=== PATIENT | female | born 1985 | race African-American/Black ===

== ENCOUNTER 2023-02-03 19:08 | Emergency (ER) | payer OTHER, SELFPAY ==
[2023-02-03 19:12] VITALS: BP 113/62; PULSE 61; RESP 20; TEMP 36.6; O2SAT 97; BMI 31.6
[2023-02-03 19:40] LABS: Add Manual Diff / Slide Review NO; Basophils Absolute Auto 0 /uL (0-100); Basophils Percent Auto 0.4 % (0-2); Eosinophils Absolute Auto 200 /uL (0-450); Hemoglobin 12.3 g/dL (12.0-16.0); Lymphocytes Absolute Auto 1500 /uL (1100-4500); Lymphocytes Percent Auto 12.5 % (25-40); Mean Corpuscular HGB Conc 33.1 % (30-36); Mean Corpuscular Hemoglobin 27.1 PG (26-34); Mean Corpuscular Volume 81.9 fL (80-100); Monocytes Absolute Auto 600 /uL (0-900); Monocytes Percent Auto 4.8 % (3-14); Neutrophils Absolute Auto 9700 /uL (1500-7000); Neutrophils Percent Auto 80.3 % (50-75); Platelet Count 337 X10^3/uL (150-400); Red Blood Cell Count 4.52 X10^6/uL (4.0-5.2); Red Cell Distribution Width 13.4 % (11.6-14.8); White Blood Cell Count 12.1 X10^3/uL (4.5-11.0)
[2023-02-03 19:51] LABS: Alanine Aminotransferase 15 IU/L (<35); Albumin 4.6 g/dL (3.5-5.0); Albumin Globulin Ratio 1.4 (1.0-2.8); Alkaline Phosphatase 86 U/L (38-126); Aspartate Aminotransferase 28 IU/L (14-36); BUN Creatinine Ratio 8.5 (6-22); Bilirubin Total 0.3 mg/dL (0.2-1.3); Blood Urea Nitrogen 10 mg/dL (7-17); Calcium 8.7 mg/dL (8.4-10.2); Carbon Dioxide 23 mmol/L (22-32); Chloride 105 mmol/L (98-107); Estimated Glomerular Filt Rate > 60 mL/min (>60); Globulin 3.2 g/dL (1.7-4.1); Glucose 110 mg/dL (70-100); HEMOLYSIS < 15 (0-50); Lipase 69 U/L (23-300); Potassium 4.1 mmol/L (3.4-5.1); Sodium 138 mmol/L (137-145); Total Protein 7.8 g/dL (6.3-8.2)
[2023-02-03 21:31] LABS: Pregnancy Test Serum,Qual Negative (Negative)
--- NOTE | 2023-02-03 22:02 | ED.ABDPAIN ---
HPI - Abdominal Pain General Chief Complaint: Abdominal Pain Stated Complaint: rt side torso pain/nausea/vomiting Time Seen by Provider: 02/03/23 21:58 Source: patient Mode of arrival: Family Vehicle History of Present Illness HPI narrative: Patient is a healthy 37-year-old female history of depression anxiety bipolar presenting today with right flank pain. She is a history of appendectomy. She reports pain has been ongoing for the last 4 days. No fevers or chills. Pretty nauseous decrease in appetite. She is been here for couple hours not yet able to urinate. She has vomited handful of times as well. She denies any epigastric and upper abdominal pain. Seems to be right on her lateral side. No prior history of kidney stones. Related Data Previous Rx's Medication Instructions Recorded ondansetron 4 mg disintegrating 4 mg PO Q8H PRN nausea and 02/04/23 tablet vomiting #10 tabs Allergies Allergy/AdvReac Type Severity Reaction Status Date / Time aspirin Allergy Swelling Verified 02/03/23 19:20 of Lip/Tongue/Throat ciprofloxacin [From Cipro] Allergy Rash Verified 02/03/23 19:20 Sulfa (Sulfonamide Allergy Rash Verified 02/03/23 19:20 Antibiotics) vancomycin Allergy Rash Verified 02/03/23 19:20 Review of Systems Review of Systems ROS Unobtainable: All systems reviewed & are unremarkable except as noted in HPI and below Patient History Social History Smoking Status: Never smoker Smoking Status: Never smoker alcohol intake frequency: 0-2 drinks per day Substance Use Type: marijuana Exam Initial Vital Signs Initial Vital Signs: Vital Signs Temperature 97.9 F 02/03/23 19:12 Pulse Rate 61 02/03/23 19:12 Respiratory Rate 20 02/03/23 19:12 Blood Pressure 113/62 02/03/23 19:12 Pulse Oximetry 97 02/03/23 19:12 Oxygen Delivery Method Room Air 02/03/23 19:12 GENERAL: Alert pleasant well-appearing 37-year-old female and in no acute distress. HEENT: Head atraumatic,EOMI, pupils reactive, face symmetric, moist mucous membranes CARDIOVASCULAR: Regular rate and rhythm without murmurs, rubs or gallops. RESPIRATORY: Breath sounds equal bilaterally, no wheezes rales or rhonchi. ABDOMEN: Soft, mild right lower quadrant tenderness no guarding no rebound : Mild right CVA tenderness EXTREMITIES: Normal range of motion, no clubbing or edema. Neurovascularly intact NEUROLOGICAL: Alert and oriented x4. SKIN: Warm, dry, no laceration, no petechiae, no rashes or lesions. Course Orders Ordered: ED Orders 02/03/23 19:25 Complete Blood Count AUTO DIFF Stat Comprehensive Metabolic Panel Stat Lipase Stat Test Serum,Qual Stat 02/03/23 22:17 CT kidney ureter bladder (KUB) Stat Discontinued Medications Sodium Chloride (Normal Saline 0.9%) 1,000 mls @ 1,000 mls/hr IV BOLUS ONE Stop: 02/03/23 23:16 Last Infusion: 02/03/23 23:30 Dose: 0 mls/hr Documented By: Admin: 02/03/23 22:30 Dose: 1,000 mls/hr Documented By: EULALIA Ondansetron HCl (Ondansetron 4 Mg Odt) 4 mg PO NOW PRN PRN Reason: Nausea And Vomiting Ondansetron HCl (Ondansetron 4 Mg/2 Ml Inj) 4 mg IV NOW PRN PRN Reason: Nausea And Vomiting Ondansetron HCl (Ondansetron 4 Mg/2 Ml Inj) 4 mg IV NOW ONE Stop: 02/03/23 22:18 Last Admin: 02/03/23 22:30 Dose: 4 mg Documented By: EULALIA Ondansetron HCl (Ondansetron 4 Mg Odt Prepack) 1 bottle MISC SEEINSTR ONE Stop: 02/04/23 00:35 Last Admin: 02/04/23 00:53 Dose: 1 bottle Documented By: EULALIA Vital Signs Vital signs: Vital Signs - 8 hr 02/04/23 00:53 Temperature 97.7 F Pulse Rate 74 Respiratory Rate 16 Blood Pressure 124/70 Pulse Oximetry 98 Oxygen Delivery Method Room Air MDM - Abdominal Pain Lab Data 02/03/23 19:25 02/03/23 19:25 Labs: Lab Results 02/03/23 02/03/23 02/03/23 Range/Units 19:25 19:25 19:25 WBC 12.1 H (4.5-11.0) X10^3/uL RBC 4.52 (4.0-5.2) X10^6/uL Hgb 12.3 (12.0-16.0) g/dL Hct 37.0 (36-46) % MCV 81.9 (80-100) fL MCH 27.1 (26-34) PG MCHC 33.1 (30-36) % RDW 13.4 (11.6-14.8) % Plt Count 337 (150-400) X10^3/uL Neut % (Auto) 80.3 H (50-75) % Lymph % (Auto) 12.5 L (25-40) % [place] % (Auto) 4.8 (3-14) % Eos % (Auto) 2.0 (2-4) % Baso % (Auto) 0.4 (0-2) % Neut # (Auto) 9700 H (3420-8739) /uL Lymph # (Auto) 1500 (3916-9338) /uL [place] # (Auto) 600 (0-900) /uL Eos # (Auto) 200 (0-450) /uL Baso # (Auto) 0 (0-100) /uL Sodium 138 (137-145) mmol/L Potassium 4.1 (3.4-5.1) mmol/L Chloride 105 (98-107) mmol/L Carbon Dioxide 23 (22-32) mmol/L BUN 10 (7-17) mg/dL Creatinine 1.17 H (0.52-1.04) mg/dL Estimated GFR > 60 (>60) mL/min BUN/Creatinine Ratio 8.5 (6-22) Glucose 110 H (70-100) mg/dL Calcium 8.7 (8.4-10.2) mg/dL Total Bilirubin 0.3 (0.2-1.3) mg/dL AST 28 (14-36) IU/L ALT 15 (<35) IU/L Alkaline Phosphatase 86 (38-126) U/L Total Protein 7.8 (6.3-8.2) g/dL Albumin 4.6 (3.5-5.0) g/dL Globulin 3.2 (1.7-4.1) g/dL Albumin/Globulin Ratio 1.4 (1.0-2.8) Lipase 69 (23-300) U/L Serum , Qual Negative (Negative) Point of care testing: Urine Dip Bedside Urine Glucose Negative Bedside Urine Bilirubin - Negative Bedside Urine Ketone - Negative Urine Specific [place] 1.020 Bedside Urine Occult Blood - Negative Bedside Urine pH 6 Bedside Urine Protein - Negative Bedside Urine Urobilinogen - Negative Bedside Urine Nitrite - Negative Bedside Urine Leukocytes - Negative Esterase Imaging Data CT scan - abdomen/pelvis: Radiologist's Impression: PROCEDURE:? CT KIDNEY URETER BLADDER (KUB) ? INDICATIONS:? right flank pain ? TECHNIQUE:? Axial sections were acquired from the lung bases to the pubic symphysis.? Coronal and sagittal reformats were performed.? For radiation dose reduction, the following was used: ?automated exposure control, adjustment of mA and/or kV according to patient size.? ? COMPARISON:? None. ? FINDINGS:? Image quality:? Excellent.? ? Lung bases:? Unremarkable.? ? Heart:? No significant findings. ? URINARY: Right Kidney: ? No stones or hydronephrosis.? Right Ureter:? No hydroureter.? ? Left Kidney: ? No stones or hydronephrosis. Left Ureter:? No hydroureter.? ? Bladder:? Normal wall thickness. No stones. ? ? ? ABDOMEN: Liver:? Unremarkable.? ? Gallbladder:? Unremarkable.? ? Biliary ducts:? Unremarkable.? ? Pancreas:? Unremarkable.? ? Spleen:? Unremarkable.? ? Adrenal Glands:? Unremarkable.? ? ? Stomach and Bowel:? Stomach, small bowel loops, and colon are unremarkable.? Peritoneum:? No abnormal intraperitoneal fluid.? No free air.? ? Ventral Wall: ? No hernia.? Abdominal Nodes:? No enlarged retroperitoneal or mesenteric lymph nodes.? Vessels:? Aorta and inferior vena cava are normal in size.? ? PELVIS: Pelvic Organs:? Unremarkable.? ? Pelvic Nodes: Unremarkable. Miscellaneous: No inguinal hernias are seen. ? ? At the right lower quadrant several scattered surgical clips suggest prior appendectomy. ? Bones:? Unremarkable. ? IMPRESSION:? ? No hydronephrosis or nephrolithiasis found.? Several surgical clips right lower quadrant suggest prior appendectomy. ? ? Dictated by: Adama Ornelas M.D. on 02/03/2023 at 23:11 ? [facility] Narrative Medical decision making narrative: Patient is a 37-year-old female presenting today with right-sided pain and nausea some vomiting. She is found has some mild leukocytosis creatinine is elevated slightly at 1.1. She has had decreased intake. CT is negative for any kidney stone. She is no elevation in liver enzymes or bilirubin really no right upper quadrant pain. I suspect more of a gastroenteritis. He is given IV fluids and Toradol along with Zofran overall feeling a bit better. Negative urinalysis. At this time no other workup or imaging is indicated. Given Zofran to go home with. Discharge Plan Departure Patient Disposition: Home Clinical Impression: Gastroenteritis Instructions: DI for Viral Gastroenteritis -- Adult Activity Restrictions/Additional Instructions: *You have been diagnosed with gastroenteritis *What to do: Increase fluid as tolerated. Hopefully a nausea medication helps. If you are not eating recommend Gatorade or Gatorade like product. *Continue to take medications as directed Zofran 4 mg every 8 hours if needed for nausea or vomiting *Follow up with your primary care provider in 2-3 days or call [phone] *Return to ER if you should have in preceding pain persistent vomiting or any new, worsening or concerning symptoms Prescriptions: New ondansetron 4 mg tablet,disintegrating 4 mg PO Q8H PRN (Reason: nausea and vomiting) Qty: 10 0RF Stand Alone Forms: Patient Portal/API
--- NOTE | 2023-02-03 22:17 | DI.CT.S_ITS ---
PROCEDURE: CT KIDNEY URETER BLADDER (KUB) INDICATIONS: right flank pain TECHNIQUE: Axial sections were acquired from the lung bases to the pubic symphysis. Coronal and sagittal reformats were performed. For radiation dose reduction, the following was used: automated exposure control, adjustment of mA and/or kV according to patient size. COMPARISON: None. FINDINGS: Image quality: Excellent. Lung bases: Unremarkable. Heart: No significant findings. URINARY: Right Kidney: No stones or hydronephrosis. Right Ureter: No hydroureter. Left Kidney: No stones or hydronephrosis. Left Ureter: No hydroureter. Bladder: Normal wall thickness. No stones. ABDOMEN: Liver: Unremarkable. Gallbladder: Unremarkable. Biliary ducts: Unremarkable. Pancreas: Unremarkable. Spleen: Unremarkable. Adrenal Glands: Unremarkable. Stomach and Bowel: Stomach, small bowel loops, and colon are unremarkable. Peritoneum: No abnormal intraperitoneal fluid. No free air. Ventral Wall: No hernia. Abdominal Nodes: No enlarged retroperitoneal or mesenteric lymph nodes. Vessels: Aorta and inferior vena cava are normal in size. PELVIS: Pelvic Organs: Unremarkable. Pelvic Nodes: Unremarkable. Miscellaneous: No inguinal hernias are seen. At the right lower quadrant several scattered surgical clips suggest prior appendectomy. Bones: Unremarkable. IMPRESSION: No hydronephrosis or nephrolithiasis found. Several surgical clips right lower quadrant suggest prior appendectomy. Dictated by: Adama Ornelas M.D. on 02/03/2023 at 23:11 Approved by: Adama Ornelas M.D. on 02/03/2023 at 23:13
[2023-02-03] MEDS: SODIUM CHLORIDE 0.9% 1,000 ML 1000 ML IV (22:30)
[2023-02-03] MEDS: ONDANSETRON 4 MG/2 ML INJ IV (22:30)
[2023-02-04 00:53] VITALS: BP 124/70; PULSE 74; RESP 16; TEMP 36.5; O2SAT 98
[2023-02-04] MEDS: ONDANSETRON 4 MG ODT PREPACK 1 BOTTLE MISC (00:53)
== END 2023-02-04 00:50 | disposition home or self-care (01) ==
PROVIDERS: Emergency Provider Emergency Medicine
DX: K52.9 Noninfective gastroenteritis and colitis, unspecified (principal); R11.2 Nausea with vomiting, unspecified
CPT/HCPCS: 36415; 74176; 80053; 81003; 83690; 84703; 85025; 96361; 96374; 99284; J2405

== ENCOUNTER 2023-11-07 09:28 | Emergency (ER) | payer OTHER, SELFPAY ==
[2023-11-07] VITALS (9 sets, daily range): BP systolic 124–137; BP diastolic 59–77; PULSE 60–72; RESP 16; TEMP 36.6; O2SAT 97–100; BMI 27.4
--- NOTE | 2023-11-07 10:32 | DI.CT.S_ITS ---
PROCEDURE: CT HEAD/BRAIN WO CON INDICATIONS: vision changes both sides TECHNIQUE: Noncontrast 4.5 mm thick angled axial sections acquired from the foramen magnum to the vertex, with coronal and sagittal reformats. For radiation dose reduction, the following was used: automated exposure control, adjustment of mA and/or kV according to patient size. COMPARISON: None. FINDINGS: Image quality: Diagnostic. CSF spaces: Basal cisterns are patent. No extra-axial fluid collections. Ventricles are normal in size and shape. Brain: No midline shift. No intracranial masses or hemorrhage. Hirsch-white matter interface is normal. Skull and face: Calvarium and visualized facial bones are intact, without suspicious lesions. Sinuses: Visualized sinuses and mastoids are clear. IMPRESSION: No acute intracranial pathology. Dictated by: Brooke Anaya M.D. on 11/07/2023 at 11:17 Approved by: Brooke Anaya M.D. on 11/07/2023 at 11:19
--- NOTE | 2023-11-07 10:35 | ED.HA ---
HPI - Headache General Chief Complaint: Headache Stated Complaint: Triple Vision Time Seen by Provider: 11/07/23 09:46 History of Present Illness HPI Narrative: Patient 38-year-old female history of bipolar presents today with visual changes. She reports almost every morning for the last 3 weeks she has some blurry double vision. She says she is still able to drive her daughter to school and get to work in the slowly gets better. This morning she says that her vision was so bad and blurry that she could not see. She has a little bit of pressure behind her right eye. No real headache nausea or vomiting. She has not really complaining of dizziness. She reports that this is slowly getting better. She denies wearing contacts or glasses. By the end of the day she is able to see and does not have any problem. Related Data Previous Rx's Medication Instructions Recorded ondansetron 4 mg disintegrating 4 mg PO Q8H PRN nausea and 02/04/23 tablet vomiting #10 tabs Allergies Allergy/AdvReac Type Severity Reaction Status Date / Time aspirin Allergy Swelling Verified 02/03/23 19:20 of Lip/Tongue/Throat ciprofloxacin [From Cipro] Allergy Rash Verified 02/03/23 19:20 Sulfa (Sulfonamide Allergy Rash Verified 02/03/23 19:20 Antibiotics) vancomycin Allergy Rash Verified 02/03/23 19:20 Patient History Social History Smoking Status: Never smoker Smoking Status: Never smoker alcohol intake frequency: 0-2 drinks per day Substance Use Type: marijuana Exam Initial Vital Signs Initial Vital Signs: Vital Signs Pulse Rate 62 11/07/23 09:32 Blood Pressure 127/66 11/07/23 09:32 Pulse Oximetry 99 11/07/23 09:32 GENERAL: Alert well-appearing 38-year-old female and in no acute distress. HEENT: Head atraumatic,EOMI, pupils reactive, face symmetric, moist mucous membranes Pupils equal round and reactive Pressure right eye range from 30-42mmHg Pressure left eye ranged from 24 36mmHg CARDIOVASCULAR: Regular rate and rhythm without murmurs, rubs or gallops. RESPIRATORY: Breath sounds equal bilaterally, no wheezes rales or rhonchi. ABDOMEN: Soft, nontender. Normoactive bowel sounds all 4 quadrants. No guarding or rebound. EXTREMITIES: Normal range of motion, no clubbing or edema. Neurovascularly intact NEUROLOGICAL: Alert and oriented x4.Normal gait and speech. Cranial nerves II through XII grossly intact. Good [id number], good [id number], strength equal bilaterally, no dysarthria or aphasia, sensation in tact to soft touch bilaterally, no visual changes, no facial droop SKIN: Warm, dry, no laceration, no petechiae, no rashes or lesions. Scores NIH Stroke Scale Level of Conciousness: Alert, keenly responsive Ask month/age: Answers both questions correctly. Open/close eyes, close hand: Performs both tasks correctly Best gaze horizontal: Normal Visual solomon: No visual loss Facial palsy: Normal symetrical movement Left arm drift: No drift for full 10 sec Right arm drift: No drift for full 10 sec Left leg drift: No drift for full 5 sec Right leg drift: No drift for full 5 sec Limb ataxia: Absent Sensory on face/arms/legs: Normal, no sensory loss Best language: No aphasia, normal Dysarthria: Normal Extinction or inattention: No abnormality Total NIH Stroke scale score: 0 Course Orders Ordered: ED Orders 11/07/23 10:04 CBC Auto Diff [Complete Blood Count AUTO DIFF] Stat CMP [Comprehensive Metabolic Panel] Stat 11/07/23 10:32 CT head/brain wo con Stat Discontinued Medications Fluorescein Sodium (Fluorescein 1 Mg Strip) 1 mg EYE-BOTH NOW ONE Stop: 11/07/23 12:10 Last Admin: 11/07/23 12:15 Dose: 1 mg Documented By: RB Ketorolac Tromethamine (Ketorolac 30 Mg/Ml Vial) 15 mg IV NOW ONE Stop: 11/07/23 10:46 Last Admin: 11/07/23 10:51 Dose: 15 mg Documented By: CTS Proparacaine HCl (Proparacaine 0.5% Ophth Nicole) 1 drops EYE-BOTH NOW ONE Stop: 11/07/23 12:10 Last Admin: 11/07/23 12:15 Dose: 1 drop Documented By: RB Vital Signs Vital signs: Vital Signs - 8 hr 11/07/23 09:32 11/07/23 09:32 11/07/23 09:45 Temperature 97.8 F Pulse Rate 62 72 Respiratory Rate 16 Blood Pressure 127/66 126/66 Pulse Oximetry 99 97 Oxygen Delivery Method Room Air 11/07/23 10:00 11/07/23 10:03 11/07/23 10:03 Temperature Pulse Rate 64 66 Respiratory Rate Blood Pressure 124/68 Pulse Oximetry 100 100 Oxygen Delivery Method 11/07/23 10:30 11/07/23 10:30 11/07/23 11:01 Temperature Pulse Rate 65 68 Respiratory Rate Blood Pressure 125/68 Pulse Oximetry 100 Oxygen Delivery Method 11/07/23 11:01 11/07/23 11:30 11/07/23 11:30 Temperature Pulse Rate 60 Respiratory Rate Blood Pressure 126/59 L 131/77 Pulse Oximetry 100 Oxygen Delivery Method 11/07/23 12:00 11/07/23 12:00 11/07/23 13:41 Temperature Pulse Rate 66 61 Respiratory Rate Blood Pressure 137/74 127/69 Pulse Oximetry 100 100 Oxygen Delivery Method Room Air MDM - Headache Lab Data 11/07/23 10:04 11/07/23 10:04 Labs: Lab Results 11/07/23 Range/Units 10:04 WBC 9.1 (4.5-11.0) X10^3/uL RBC 4.48 (4.0-5.2) X10^6/uL Hgb 12.3 (12.0-16.0) g/dL Hct 37.3 (36-46) % MCV 83.1 (80-100) fL MCH 27.4 (26-34) PG MCHC 32.9 (30-36) % RDW 13.1 (11.6-14.8) % Plt Count 352 (150-400) X10^3/uL Neut % (Auto) 79.1 H (50-75) % Lymph % (Auto) 13.9 L (25-40) % [place] % (Auto) 5.5 (3-14) % Eos % (Auto) 1.3 L (2-4) % Baso % (Auto) 0.2 (0-2) % Neut # (Auto) 7200 H (7741-6553) /uL Lymph # (Auto) 1300 (7195-6957) /uL [place] # (Auto) 500 (0-900) /uL Eos # (Auto) 100 (0-450) /uL Baso # (Auto) 0 (0-100) /uL Sodium 138 (137-145) mmol/L Potassium 4.4 (3.4-5.1) mmol/L Chloride 105 (98-107) mmol/L Carbon Dioxide 24 (22-32) mmol/L BUN 9 (7-17) mg/dL Creatinine 1.11 H (0.52-1.04) mg/dL Estimated GFR > 60 (>60) mL/min BUN/Creatinine Ratio 8.1 (6-22) Glucose 112 H (70-100) mg/dL Calcium 9.1 (8.4-10.2) mg/dL Total Bilirubin 0.5 (0.2-1.3) mg/dL AST 22 (14-36) IU/L ALT 12 (<35) IU/L Alkaline Phosphatase 75 (38-126) U/L Total Protein 7.3 (6.3-8.2) g/dL Albumin 4.3 (3.5-5.0) g/dL Globulin 3.0 (1.7-4.1) g/dL Albumin/Globulin Ratio 1.4 (1.0-2.8) Point of Care Testing Test Results Negative Urine Dip Bedside Urine Glucose Negative Bedside Urine Bilirubin - Negative Bedside Urine Ketone - Negative Urine Specific [place] 1.010 Bedside Urine Occult Blood - Negative Bedside Urine pH 8.0 Bedside Urine Protein - Negative Bedside Urine Urobilinogen - Negative Bedside Urine Nitrite - Negative Bedside Urine Leukocytes - Negative Esterase Imaging Data CT scan - head: Radiologist's Impression: PROCEDURE: CT HEAD/BRAIN WO CON INDICATIONS: vision changes both sides TECHNIQUE: Noncontrast 4.5 mm thick angled axial sections acquired from the foramen magnum to the vertex, with coronal and sagittal reformats. For radiation dose reduction, the following was used: automated exposure control, adjustment of mA and/or kV according to patient size. COMPARISON: None. FINDINGS: Image quality: Diagnostic. CSF spaces: Basal cisterns are patent. No extra-axial fluid collections. Ventricles are normal in size and shape. Brain: No midline shift. No intracranial masses or hemorrhage. Hirsch-white matter interface is normal. Skull and face: Calvarium and visualized facial bones are intact, without suspicious lesions. Sinuses: Visualized sinuses and mastoids are clear. IMPRESSION: No acute intracranial pathology. Dictated by: Brooke Anaya M.D. on 11/07/2023 at 11:17 MDM Narrative Medical decision making narrative: Patient 38-year-old female presenting today ongoing blurry vision odd presentation of definitely worse in the morning slowly gets better throughout the day. The last 2 days it has been worse. Now she has some pressure and pain in her right eye. On exam her pressures are measured multiple times being sure the eyelid is held open appropriately with the Ramiro-Pen measured are all elevated. Head CT has been reviewed she has no obvious mass Blood work reviewed no significant clinical abnormality Visual acuity noted in nursing notes Patient is very young to have glaucoma although it is considered. Head CT was negative for any sort of mass. Also possible psychogenic, she is able to drive her daughter to school and get herself to work every day. 1330 Dr. Amador ophthalmology updated patient's symptoms results suspect a Ramiro-Pen is not accurate probably dry eye but is happy to see patient in clinic. Patient agrees that she will be evaluated by Ophthalmology today. Nursing staff to walker over to Ophthalmology. Discharge Plan Departure Patient Disposition: Home Clinical Impression: Visual changes Instructions: DI for Double Vision Activity Restrictions/Additional Instructions: Go directly over to [facility] they will fit you in see you. Take medications as directed Return to the ER if you should have new or worsening symptoms including numbness tingling weakness loss of vision blackening of vision worsening I Prescriptions: No Action ondansetron 4 mg tablet,disintegrating 4 mg PO Q8H PRN (Reason: nausea and vomiting) Qty: 10 0RF Referrals: Sarkis Amador MD [Physician] - Stand Alone Forms: Patient Portal/API
[2023-11-07] MEDS: KETOROLAC 30 MG/ML VIAL 15 MG IV (10:51)
[2023-11-07 10:56] LABS: Add Manual Diff / Slide Review NO; Basophils Absolute Auto 0 /uL (0-100); Basophils Percent Auto 0.2 % (0-2); Eosinophils Absolute Auto 100 /uL (0-450); Eosinophils Percent Auto 1.3 % (2-4); Hematocrit 37.3 % (36-46); Hemoglobin 12.3 g/dL (12.0-16.0); Lymphocytes Absolute Auto 1300 /uL (1100-4500); Lymphocytes Percent Auto 13.9 % (25-40); Mean Corpuscular HGB Conc 32.9 % (30-36); Mean Corpuscular Hemoglobin 27.4 PG (26-34); Mean Corpuscular Volume 83.1 fL (80-100); Monocytes Absolute Auto 500 /uL (0-900); Monocytes Percent Auto 5.5 % (3-14); Neutrophils Absolute Auto 7200 /uL (1500-7000); Neutrophils Percent Auto 79.1 % (50-75); Platelet Count 352 X10^3/uL (150-400); Red Blood Cell Count 4.48 X10^6/uL (4.0-5.2); Red Cell Distribution Width 13.1 % (11.6-14.8); White Blood Cell Count 9.1 X10^3/uL (4.5-11.0)
[2023-11-07 11:04] LABS: Alanine Aminotransferase 12 IU/L (<35); Albumin 4.3 g/dL (3.5-5.0); Albumin Globulin Ratio 1.4 (1.0-2.8); Alkaline Phosphatase 75 U/L (38-126); Aspartate Aminotransferase 22 IU/L (14-36); BUN Creatinine Ratio 8.1 (6-22); Bilirubin Total 0.5 mg/dL (0.2-1.3); Blood Urea Nitrogen 9 mg/dL (7-17); Calcium 9.1 mg/dL (8.4-10.2); Carbon Dioxide 24 mmol/L (22-32); Chloride 105 mmol/L (98-107); Estimated Glomerular Filt Rate > 60 mL/min (>60); Glucose 112 mg/dL (70-100); HEMOLYSIS < 15 (0-50); Potassium 4.4 mmol/L (3.4-5.1); Sodium 138 mmol/L (137-145); Total Protein 7.3 g/dL (6.3-8.2)
[2023-11-07] MEDS: FLUORESCEIN 1 MG STRIP EYE-BOTH (12:15)
[2023-11-07] MEDS: PROPARACAINE 0.5% OPHTH SOL 1 DROPS EYE-BOTH (12:15)
== END 2023-11-07 13:41 | disposition home or self-care (01) ==
PROVIDERS: Emergency Provider Emergency Medicine
DX: H53.8 Other visual disturbances (principal); H57.11 Ocular pain, right eye
CPT/HCPCS: 36415; 70450; 80053; 81003; 81025; 85025; 99284; J1885

== ENCOUNTER → 2023-11-24 15:26 | Outpatient (CLI) | payer OTHER, SELFPAY ==
--- NOTE | 2023-11-24 | DI.MRI.S_ITS ---
PROCEDURE: MR HEAD/BRAIN WO/W CON INDICATIONS: Diplopia TECHNIQUE: Noncontrast axial T1 spin echo, axial T2 fast spin echo, sagittal and axial FLAIR, coronal T2 fast spin echo, axial gradient echo, axial diffusion and ADC through the brain. After the administration of contrast, axial and coronal and sagittal 3D VIBE or T1 spin echo with fat saturation through the brain. COMPARISON: [facility], CT, CT HEAD/BRAIN WO CON, 11/07/2023, 11:01. FINDINGS: Image quality: Excellent. CSF Spaces: Basal cisterns are patent. No extra-axial fluid collections. Ventricles are normal in size and shape. Brain: No midline shift. No intracranial bleeds or masses. No abnormal intracranial enhancement. The brainstem appears normal. Diffusion-weighted images demonstrate no acute infarct. No chronic ischemic insults. Normal intravascular flow voids are present. Skull and face: Calvarial marrow is normal in signal. Orbits appear normal. Sinuses: Sinuses and mastoids appear clear. IMPRESSION: No cause for patient's symptoms is identified. No acute intracranial abnormalities. Dictated by: Felice Hyde M.D. on 11/26/2023 at 9:13 Approved by: Felice Hyde M.D. on 11/26/2023 at 9:16
== END ==
PROVIDERS: Referring Provider Internal Medicine; Visit Provider Internal Medicine
DX: H53.2 Diplopia (principal)
CPT/HCPCS: 70553; A9579

== ENCOUNTER 2023-12-07 00:01 | Emergency (ER) | payer OTHER, SELFPAY ==
[2023-12-07] VITALS (29 sets, daily range): BP systolic 90–122; BP diastolic 52–70; PULSE 56–78; RESP 15–32; TEMP 36.9; O2SAT 96–100; BMI 28.7
[2023-12-07] MEDS: SODIUM CHLORIDE 0.9% 1,000 ML 150 ML IV (00:28)
[2023-12-07 00:32] LABS: Add Manual Diff / Slide Review NO; Basophils Absolute Auto 100 /uL (0-100); Basophils Percent Auto 0.5 % (0-2); Eosinophils Absolute Auto 200 /uL (0-450); Eosinophils Percent Auto 1.8 % (2-4); Hematocrit 36.3 % (36-46); Hemoglobin 11.9 g/dL (12.0-16.0); Lymphocytes Absolute Auto 2700 /uL (1100-4500); Lymphocytes Percent Auto 26.2 % (25-40); Mean Corpuscular HGB Conc 32.8 % (30-36); Mean Corpuscular Hemoglobin 27.4 PG (26-34); Mean Corpuscular Volume 83.6 fL (80-100); Monocytes Absolute Auto 600 /uL (0-900); Monocytes Percent Auto 5.8 % (3-14); Neutrophils Absolute Auto 6800 /uL (1500-7000); Neutrophils Percent Auto 65.7 % (50-75); Platelet Count 357 X10^3/uL (150-400); Red Blood Cell Count 4.34 X10^6/uL (4.0-5.2); Red Cell Distribution Width 13.4 % (11.6-14.8); White Blood Cell Count 10.4 X10^3/uL (4.5-11.0)
--- NOTE | 2023-12-07 00:37 | PC.NURSE ---
Talked to Christiane at poison control. Stated dose of [place] that was taken was at a toxic level. Confirmed pt took extended release form of medication. Christiane recommends to check lithium level q4hrs x3. as long as levels don't trend up, they don't need to be rechecked. Stated to check ekg's and monitor qtc, states if any elevation in qtc to ensure potassium is greater than 4 and Magnesium greater than 2. states symptoms of lithium toxicity can include nausea/vomiting, tremors, hyper reflexia, slurred speach and confusion. states states lithium can flatten or invert t-waves. reports if patient has increased agitation or tremors can medicate with benzos and to keep patient hydrated.
[2023-12-07 00:39] LABS: Acetaminophen < 10 ug/mL (10-30); Alanine Aminotransferase 13 IU/L (<35); Albumin 4.4 g/dL (3.5-5.0); Albumin Globulin Ratio 1.4 (1.0-2.8); Alkaline Phosphatase 76 U/L (38-126); Aspartate Aminotransferase 22 IU/L (14-36); BUN Creatinine Ratio 9.3 (6-22); Bilirubin Total 0.4 mg/dL (0.2-1.3); Blood Urea Nitrogen 10 mg/dL (7-17); Calcium 9.5 mg/dL (8.4-10.2); Carbon Dioxide 25 mmol/L (22-32); Chloride 109 mmol/L (98-107); Estimated Glomerular Filt Rate > 60 mL/min (>60); Ethanol (ETOH) < 10 mg/dL; Globulin 3.2 g/dL (1.7-4.1); Glucose 128 mg/dL (70-100); HEMOLYSIS < 15 (0-50); Potassium 3.8 mmol/L (3.4-5.1); Salicylate < 1.0 mg/dL (<20); Sodium 139 mmol/L (137-145); Total Protein 7.6 g/dL (6.3-8.2)
[2023-12-07 00:40] LABS: Pregnancy Test Serum,Qual Negative (Negative)
[2023-12-07 00:42] LABS: Lithium 0.6 mmol/L (0.6-1.2)
[2023-12-07 00:44] LABS: Lactate (Lactic Acid) 1.1 mmol/L (0.7-2.1)
[2023-12-07 01:05] LABS: Magnesium 2.2 mg/dL (1.6-2.3)
--- NOTE | 2023-12-07 01:50 | ED_ITS ---
HPI - Overdose <Caridad Dan DO - Last Filed: 12/08/23 02:19> General Chief Complaint: Toxicology Problem Stated Complaint: called poison control and told her to come here Time Seen by Provider: 12/07/23 00:20 Source: patient Mode of arrival: Ambulatory History of Present Illness HPI Narrative: Patient is a 38-year-old female history of bipolar on lithium presenting today with a accidental overdose. She reports that she had a whole week for medications in the pill box. However she was missing 1 she was taking 1 out of another day putting it in today's eventually she had 2 full days open she went to take them and dumped all of them out. So she took double the dose of all of her medication. She is taking 900 mg of extended release lithium. She called poison control who recommended that she come to the ED. nursing staff has already called and spoken with poison control recommend monitoring lithium level every 4 hours worried because it is the extended release version. No other complications or concerns with the medication she took. Other medications include Lamictal propranolol amitriptyline and vitamin-D. Related Data Previous Rx's Medication Instructions Recorded ondansetron 4 mg disintegrating 4 mg PO Q8H PRN nausea and 02/04/23 tablet vomiting #10 tabs Allergies Allergy/AdvReac Type Severity Reaction Status Date / Time aspirin Allergy Swelling Verified 02/03/23 19:20 of Lip/Tongue/Throat ciprofloxacin [From Cipro] Allergy Rash Verified 02/03/23 19:20 Sulfa (Sulfonamide Allergy Rash Verified 02/03/23 19:20 Antibiotics) vancomycin Allergy Rash Verified 02/03/23 19:20 Patient History <Caridad Dan DO - Last Filed: 12/08/23 02:19> Social History Smoking Status: Never smoker Smoking Status: Never smoker alcohol intake frequency: 0-2 drinks per day Substance Use Type: marijuana Exam <Caridad Dan DO - Last Filed: 12/08/23 02:19> Initial Vital Signs Initial Vital Signs: Vital Signs Temperature 98.4 F 12/07/23 00:10 Pulse Rate 78 12/07/23 00:10 Respiratory Rate 17 12/07/23 00:10 Blood Pressure 122/63 12/07/23 00:10 Pulse Oximetry 100 12/07/23 00:10 Oxygen Delivery Method Room Air 12/07/23 00:10 GENERAL: Alert pleasant well-appearing 30-year-old female and in no acute distress. HEENT: Head atraumatic,EOMI, pupils reactive, face symmetric, moist mucous membranes CARDIOVASCULAR: Regular rate and rhythm without murmurs, rubs or gallops. RESPIRATORY: Breath sounds equal bilaterally, no wheezes rales or rhonchi. ABDOMEN: Soft, nontender. Normoactive bowel sounds all 4 quadrants. No guarding or rebound. EXTREMITIES: Normal range of motion, no clubbing or edema. Neurovascularly intact NEUROLOGICAL: Alert and oriented x4. SKIN: Warm, dry, no laceration, no petechiae, no rashes or lesions. <Soco Reed DO - Last Filed: 12/07/23 19:07> Initial Vital Signs Initial Vital Signs: Vital Signs Temperature 98.4 F 12/07/23 00:10 Pulse Rate 78 12/07/23 00:10 Respiratory Rate 17 12/07/23 00:10 Blood Pressure 122/63 12/07/23 00:10 Pulse Oximetry 100 12/07/23 00:10 Oxygen Delivery Method Room Air 12/07/23 00:10 Course <Caridad aDn DO - Last Filed: 12/08/23 02:19> Orders Ordered: Discontinued Medications Al Hydrox/Mg Hydrox/Simethicone 20 ml/ Lidocaine HCl 15 ml 0 ml PO NOW ONE Stop: 12/07/23 02:11 Last Admin: 12/07/23 02:22 Dose: 35 ml Documented By: AB Sodium Chloride (Normal Saline 0.9%) 1,000 mls @ 150 mls/hr IV CONT ANTONIO Last Infusion: 12/07/23 07:58 Dose: Infused Documented By: Admin: 12/07/23 00:28 Dose: 150 mls/hr Documented By: SB Vital Signs Vital signs: Vital Signs - 8 hr 12/07/23 11:30 12/07/23 12:00 12/07/23 12:30 Pulse Rate 60 66 58 L Respiratory Rate 20 31 H 17 Blood Pressure Pulse Oximetry 96 98 99 Oxygen Delivery Method 12/07/23 13:00 12/07/23 13:33 12/07/23 13:33 Pulse Rate 57 L 64 Respiratory Rate 17 23 Blood Pressure 95/58 L Pulse Oximetry 99 100 Oxygen Delivery Method Room Air Room Air <Soco Reed, DO - Last Filed: 12/07/23 19:07> Orders Ordered: Discontinued Medications Al Hydrox/Mg Hydrox/Simethicone 20 ml/ Lidocaine HCl 15 ml 0 ml PO NOW ONE Stop: 12/07/23 02:11 Last Admin: 12/07/23 02:22 Dose: 35 ml Documented By: AB Sodium Chloride (Normal Saline 0.9%) 1,000 mls @ 150 mls/hr IV CONT ANTONIO Last Infusion: 12/07/23 07:58 Dose: Infused Documented By: Admin: 12/07/23 00:28 Dose: 150 mls/hr Documented By: SB Vital Signs Vital signs: Vital Signs - 8 hr 12/07/23 11:30 12/07/23 12:00 12/07/23 12:30 Pulse Rate 60 66 58 L Respiratory Rate 20 31 H 17 Blood Pressure Pulse Oximetry 96 98 99 Oxygen Delivery Method 12/07/23 13:00 12/07/23 13:33 12/07/23 13:33 Pulse Rate 57 L 64 Respiratory Rate 17 23 Blood Pressure 95/58 L Pulse Oximetry 99 100 Oxygen Delivery Method Room Air Room Air MDM - Overdose <Caridad Dan, DO - Last Filed: 12/08/23 02:19> Lab Data 12/07/23 00:16 12/07/23 00:16 Labs: Lab Results 12/07/23 12/07/23 12/07/23 Range/Units 00:16 04:10 04:15 WBC 10.4 (4.5-11.0) X10^3/uL RBC 4.34 (4.0-5.2) X10^6/uL Hgb 11.9 L (12.0-16.0) g/dL Hct 36.3 (36-46) % MCV 83.6 (80-100) fL MCH 27.4 (26-34) PG MCHC 32.8 (30-36) % RDW 13.4 (11.6-14.8) % Plt Count 357 (150-400) X10^3/uL Neut % (Auto) 65.7 (50-75) % Lymph % (Auto) 26.2 (25-40) % [place] % (Auto) 5.8 (3-14) % Eos % (Auto) 1.8 L (2-4) % Baso % (Auto) 0.5 (0-2) % Neut # (Auto) 6800 (4749-3485) /uL Lymph # (Auto) 2700 (2885-5036) /uL [place] # (Auto) 600 (0-900) /uL Eos # (Auto) 200 (0-450) /uL Baso # (Auto) 100 (0-100) /uL Sodium 139 (137-145) mmol/L Potassium 3.8 (3.4-5.1) mmol/L Chloride 109 H (98-107) mmol/L Carbon Dioxide 25 (22-32) mmol/L BUN 10 (7-17) mg/dL Creatinine 1.08 H (0.52-1.04) mg/dL Estimated GFR > 60 (>60) mL/min BUN/Creatinine Ratio 9.3 (6-22) Glucose 128 H (70-100) mg/dL Lactate 1.1 (0.7-2.1) mmol/L Calcium 9.5 (8.4-10.2) mg/dL Magnesium 2.2 (1.6-2.3) mg/dL Total Bilirubin 0.4 (0.2-1.3) mg/dL AST 22 (14-36) IU/L ALT 13 (<35) IU/L Alkaline Phosphatase 76 (38-126) U/L Total Protein 7.6 (6.3-8.2) g/dL Albumin 4.4 (3.5-5.0) g/dL Globulin 3.2 (1.7-4.1) g/dL Albumin/Globulin Ratio 1.4 (1.0-2.8) Serum , Qual Negative (Negative) Salicylates < 1.0 (<20) mg/dL U Opiates 300ng/mL cut Negative (Negative) Ur Oxycodone Screen Negative (Negative) Urine Methadone Screen Negative (Negative) Acetaminophen < 10 (10-30) ug/mL Ur Barbiturates Screen Negative (Negative) U Tricyclic Antidepress Positive H (Negative) Ur Phencyclidine Scrn Negative (Negative) Ur Amphetamines Screen Negative (Negative) U Methamphetamines Scrn Negative (Negative) Ur MDMA Scrn (Ecstasy) Negative (Negative) U Benzodiazepines Scrn Negative (Negative) [place] 0.6 1.9 H* (0.6-1.2) mmol/L Urine Cocaine Screen Negative (Negative) U Marijuana (THC) Screen Negative (Negative) Urine pH Normal (Normal) Urine Specific [place] Normal (Normal) Ethyl Alcohol < 10 ( - 10) mg/dL Ur Creatinine Normal (Normal) 12/07/23 12/07/23 Range/Units 08:20 12:30 WBC (4.5-11.0) X10^3/uL RBC (4.0-5.2) X10^6/uL Hgb (12.0-16.0) g/dL Hct (36-46) % MCV (80-100) fL MCH (26-34) PG MCHC (30-36) % RDW (11.6-14.8) % Plt Count (150-400) X10^3/uL Neut % (Auto) (50-75) % Lymph % (Auto) (25-40) % [place] % (Auto) (3-14) % Eos % (Auto) (2-4) % Baso % (Auto) (0-2) % Neut # (Auto) (3713-2184) /uL Lymph # (Auto) (4729-2409) /uL Greene # (Auto) (0-900) /uL Eos # (Auto) (0-450) /uL Baso # (Auto) (0-100) /uL Sodium (137-145) mmol/L Potassium (3.4-5.1) mmol/L Chloride (98-107) mmol/L Carbon Dioxide (22-32) mmol/L BUN (7-17) mg/dL Creatinine (0.52-1.04) mg/dL Estimated GFR (>60) mL/min BUN/Creatinine Ratio (6-22) Glucose (70-100) mg/dL Lactate (0.7-2.1) mmol/L Calcium (8.4-10.2) mg/dL Magnesium (1.6-2.3) mg/dL Total Bilirubin (0.2-1.3) mg/dL AST (14-36) IU/L ALT (<35) IU/L Alkaline Phosphatase (38-126) U/L Total Protein (6.3-8.2) g/dL Albumin (3.5-5.0) g/dL Globulin (1.7-4.1) g/dL Albumin/Globulin Ratio (1.0-2.8) Serum , Qual (Negative) Salicylates (<20) mg/dL U Opiates 300ng/mL cut (Negative) Ur Oxycodone Screen (Negative) Urine Methadone Screen (Negative) Acetaminophen (10-30) ug/mL Ur Barbiturates Screen (Negative) U Tricyclic Antidepress (Negative) Ur Phencyclidine Scrn (Negative) Ur Amphetamines Screen (Negative) U Methamphetamines Scrn (Negative) Ur MDMA Scrn (Ecstasy) (Negative) U Benzodiazepines Scrn (Negative) [place] 1.8 H* 1.3 H (0.6-1.2) mmol/L Urine Cocaine Screen (Negative) U Marijuana (THC) Screen (Negative) Urine pH (Normal) Urine Specific [place] (Normal) Ethyl Alcohol ( - 10) mg/dL Ur Creatinine (Normal) ECG Data Interpretation: EKG 1. Sinus rhythm rate 70 DC interval 164 QRS [address] changes EKG 2. Sinus rhythm QTC [address] changes MDM Narrative Medical decision making narrative: Patient 38-year-old female presents today who accidentally overdosed on medication. She took 2 days' worth of lithium in her other meds. Poison control was contacted by nursing staff. Recommended serial lithium levels due to extended release. Denying suicidal homicidal ideations Blood work has been reviewed initial lithium level 0.6 with 4 hour repeat 1.9 at 30s still pending. EKGs have been reviewed QTC remains less than 500 the 1st is 444 and repeat for 51 Patient is happy awake and alert without any complaints except for burning. She has given a GI cocktail which helped some. Patient signed out to Dr. Reed for further monitoring and final disposition. <Soco Reed, DO - Last Filed: 12/07/23 19:07> Lab Data Labs: Lab Results 12/07/23 12/07/23 12/07/23 Range/Units 00:16 04:10 04:15 WBC 10.4 (4.5-11.0) X10^3/uL RBC 4.34 (4.0-5.2) X10^6/uL Hgb 11.9 L (12.0-16.0) g/dL Hct 36.3 (36-46) % MCV 83.6 (80-100) fL MCH 27.4 (26-34) PG MCHC 32.8 (30-36) % RDW 13.4 (11.6-14.8) % Plt Count 357 (150-400) X10^3/uL Neut % (Auto) 65.7 (50-75) % Lymph % (Auto) 26.2 (25-40) % [place] % (Auto) 5.8 (3-14) % Eos % (Auto) 1.8 L (2-4) % Baso % (Auto) 0.5 (0-2) % Neut # (Auto) 6800 (6706-2650) /uL Lymph # (Auto) 2700 (1320-0753) /uL [place] # (Auto) 600 (0-900) /uL Eos # (Auto) 200 (0-450) /uL Baso # (Auto) 100 (0-100) /uL Sodium 139 (137-145) mmol/L Potassium 3.8 (3.4-5.1) mmol/L Chloride 109 H (98-107) mmol/L Carbon Dioxide 25 (22-32) mmol/L BUN 10 (7-17) mg/dL Creatinine 1.08 H (0.52-1.04) mg/dL Estimated GFR > 60 (>60) mL/min BUN/Creatinine Ratio 9.3 (6-22) Glucose 128 H (70-100) mg/dL Lactate 1.1 (0.7-2.1) mmol/L Calcium 9.5 (8.4-10.2) mg/dL Magnesium 2.2 (1.6-2.3) mg/dL Total Bilirubin 0.4 (0.2-1.3) mg/dL AST 22 (14-36) IU/L ALT 13 (<35) IU/L Alkaline Phosphatase 76 (38-126) U/L Total Protein 7.6 (6.3-8.2) g/dL Albumin 4.4 (3.5-5.0) g/dL Globulin 3.2 (1.7-4.1) g/dL Albumin/Globulin Ratio 1.4 (1.0-2.8) Serum , Qual Negative (Negative) Salicylates < 1.0 (<20) mg/dL U Opiates 300ng/mL cut Negative (Negative) Ur Oxycodone Screen Negative (Negative) Urine Methadone Screen Negative (Negative) Acetaminophen < 10 (10-30) ug/mL Ur Barbiturates Screen Negative (Negative) U Tricyclic Antidepress Positive H (Negative) Ur Phencyclidine Scrn Negative (Negative) Ur Amphetamines Screen Negative (Negative) U Methamphetamines Scrn Negative (Negative) Ur MDMA Scrn (Ecstasy) Negative (Negative) U Benzodiazepines Scrn Negative (Negative) [place] 0.6 1.9 H* (0.6-1.2) mmol/L Urine Cocaine Screen Negative (Negative) U Marijuana (THC) Screen Negative (Negative) Urine pH Normal (Normal) Urine Specific [place] Normal (Normal) Ethyl Alcohol < 10 ( - 10) mg/dL Ur Creatinine Normal (Normal) 12/07/23 12/07/23 Range/Units 08:20 12:30 WBC (4.5-11.0) X10^3/uL RBC (4.0-5.2) X10^6/uL Hgb (12.0-16.0) g/dL Hct (36-46) % MCV (80-100) fL MCH (26-34) PG MCHC (30-36) % RDW (11.6-14.8) % Plt Count (150-400) X10^3/uL Neut % (Auto) (50-75) % Lymph % (Auto) (25-40) % [place] % (Auto) (3-14) % Eos % (Auto) (2-4) % Baso % (Auto) (0-2) % Neut # (Auto) (5589-3000) /uL Lymph # (Auto) (3018-9269) /uL [place] # (Auto) (0-900) /uL Eos # (Auto) (0-450) /uL Baso # (Auto) (0-100) /uL Sodium (137-145) mmol/L Potassium (3.4-5.1) mmol/L Chloride (98-107) mmol/L Carbon Dioxide (22-32) mmol/L BUN (7-17) mg/dL Creatinine (0.52-1.04) mg/dL Estimated GFR (>60) mL/min BUN/Creatinine Ratio (6-22) Glucose (70-100) mg/dL Lactate (0.7-2.1) mmol/L Calcium (8.4-10.2) mg/dL Magnesium (1.6-2.3) mg/dL Total Bilirubin (0.2-1.3) mg/dL AST (14-36) IU/L ALT (<35) IU/L Alkaline Phosphatase (38-126) U/L Total Protein (6.3-8.2) g/dL Albumin (3.5-5.0) g/dL Globulin (1.7-4.1) g/dL Albumin/Globulin Ratio (1.0-2.8) Serum , Qual (Negative) Salicylates (<20) mg/dL U Opiates 300ng/mL cut (Negative) Ur Oxycodone Screen (Negative) Urine Methadone Screen (Negative) Acetaminophen (10-30) ug/mL Ur Barbiturates Screen (Negative) U Tricyclic Antidepress (Negative) Ur Phencyclidine Scrn (Negative) Ur Amphetamines Screen (Negative) U Methamphetamines Scrn (Negative) Ur MDMA Scrn (Ecstasy) (Negative) U Benzodiazepines Scrn (Negative) [place] 1.8 H* 1.3 H (0.6-1.2) mmol/L Urine Cocaine Screen (Negative) U Marijuana (THC) Screen (Negative) Urine pH (Normal) Urine Specific [place] (Normal) Ethyl Alcohol ( - 10) mg/dL Ur Creatinine (Normal) MDM Narrative Medical decision making narrative: Patient 38-year-old female presents today who accidentally overdosed on medication. She took 2 days' worth of lithium in her other meds. Poison control was contacted by nursing staff. Recommended serial lithium levels due to extended release. Denying suicidal homicidal ideations Blood work has been reviewed initial lithium level 0.6 with 4 hour repeat 1.9 at 30s still pending. EKGs have been reviewed QTC remains less than 500 the 1st is 444 and repeat for 51 Patient is happy awake and alert without any complaints except for burning. She has given a GI cocktail which helped some. Patient signed out to Dr. Reed for further monitoring and final disposition. 12/07/2023 Dr. Reed: Patient is seen and evaluated by myself. Patient has what sounds like accidental overdose on her medication. Has been followed with poison control her lithium level had trended upwards has a repeat that was pending did trend down. Patient has been doing well overall, cassy have been vitals blood pressure has been a little on the low side but stable. Patient's walk to the bathroom without any issues. Re-contacted poison control they would like a repeat lithium level to make sure it is continuing to trend down words as it is extended-release if it is still trending down words on the repeat patient would felt appropriate for discharge home. Updated patient all questions asked. repeat lithium level continues to downtrend. Patient felt a little shaky, but eating drinking and otherwise acting normally. Patient has been ambulating to the bathroom without issue. Patient is felt safe for disposition home. Naloxone at Discharge Meets criteria for naloxone at discharge?: No Discharge Plan Departure Patient Disposition: Home Clinical Impression: Accidental overdose of lithium Activity Restrictions/Additional Instructions: Please follow up recheck. Skip your lithium dose today. You may take your next dose tomorrow evening and resume your normal regular dosing schedule. Please return for any new or worsening symptoms, lightheadedness or passing out, persistent nausea or vomiting increasing urinary frequency, tremor, vision changes, or other new or concerning changes. Prescriptions: No Action ondansetron 4 mg tablet,disintegrating 4 mg PO Q8H PRN (Reason: nausea and vomiting) Qty: 10 0RF Referrals: [facility] [Primary Care Provider] - Stand Alone Forms: Patient Portal/API, Work Release Note
[2023-12-07] MEDS: MAG HYDROX/ALUMINUM/SIMETH SUS 20 ML, LIDOCAINE VISCOUS 2% 15 ML PO (02:22)
[2023-12-07 04:26] LABS: Ur Creatinine Normal (Normal); Ur Specific Gravity Normal (Normal); Urine Amphetamines Negative (Negative); Urine Barbiturates Negative (Negative); Urine Benzodiazepines Negative (Negative); Urine Cocaine Negative (Negative); Urine MDMA Negative (Negative); Urine Methadone Negative (Negative); Urine Methamphetamines Negative (Negative); Urine Opiates Negative (Negative); Urine Oxycodone Negative (Negative); Urine Phencyclidine Negative (Negative); Urine THC Negative (Negative); Urine Tricyclic Antidepressant Positive (Negative); Urine pH Normal (Normal)
[2023-12-07 04:37] LABS: Lithium 1.9 mmol/L (0.6-1.2)
--- NOTE | 2023-12-07 06:25 | PC.NURSE ---
Pt ambulated to bathroom and back about 200 ft. Gait slow but stable.
[2023-12-07 08:56] LABS: Lithium 1.8 mmol/L (0.6-1.2)
--- NOTE | 2023-12-07 10:01 | PC.NURSE ---
Patient sleeping, on information systems project manager. Resp even and unlabored.
[2023-12-07 12:56] LABS: Lithium 1.3 mmol/L (0.6-1.2)
== END 2023-12-07 13:42 | disposition home or self-care (01) ==
PROVIDERS: Emergency Medicine; Emergency Provider Emergency Medicine
DX: T56.891A Toxic effect of other metals, accidental (unintentional), initial encounter (principal); R03.1 Nonspecific low blood-pressure reading
CPT/HCPCS: 36415; 80053; 80178; 80305; 80320; 80329; 83605; 83735; 84703; 85025; 93005; 99284; G0480